=== PATIENT | female | born 1950 | race Caucasian/White ===

== ENCOUNTER 2024-02-11 14:56 | Day surgery (SDC) | payer MEDICARE ==
[2024-02-11] MEDS ORDERED: Decadron 4 MG INJ IV ONE (14:57)
[2024-02-11] MEDS ORDERED: Sodium Chloride 0.9(Preservative Free) 10 ML IJ ONE (14:57)
[2024-02-11] MEDS ORDERED: DIPRIVAN 200 MG/20 ML IV ONE (17:44)
[2024-02-11] MEDS ORDERED: ROBINUL ONE (17:49)
[2024-02-11] MEDS ORDERED: Lactated Ringers 1,000 ML IV ONE (18:17)
--- NOTE | 2024-02-11 20:37 | XRAY ---
Indication: Left L4-S1 transforaminal MARYAM. Intraoperative fluoroscopy provided for 30 seconds. 4 digital spot image submitted for interpretation demonstrates posterior needle tips projecting over expected left L4 and L5 nerve roots. Small amount of contrast injected for needle tip placement. Correlate with intraoperative findings/report.
--- NOTE | 2024-02-12 09:19 | XRAY ---
30 seconds of fluoroscopy was used in surgery for a left L4-S1 transforaminal MARYAM.
== END 2024-02-11 18:18 | disposition home or self-care (01) ==
LOC: SDC-PAIN 14:56
PROVIDERS: ATTEND Psychiatry & Neurology Pain Medicine
DX: M54.16 Radiculopathy, lumbar region (principal)
CPT/HCPCS: 64483; 64484; 72100; 77003; J1100; J2704; Q9966

== ENCOUNTER 2024-04-21 12:43 | Day surgery (SDC) | payer MEDICARE ==
[2024-04-21] MEDS ORDERED: Depo-Medrol 40 MG/ML IM ONE (12:44)
[2024-04-21] MEDS ORDERED: XYLOCAINE-MPF 1% 5ML SDV IJ ONE (12:44)
[2024-04-21] MEDS ORDERED: Sodium Chloride 0.9(Preservative Free) 10 ML IJ ONE (12:44)
[2024-04-21] MEDS ORDERED: Lactated Ringers 1,000 ML IV ONE (14:30)
[2024-04-21] MEDS ORDERED: DIPRIVAN 200 MG/20 ML IV ONE (14:49)
--- NOTE | 2024-04-21 16:31 | XRAY ---
Indication: Lumbar MARYAM. Intraoperative fluoroscopy provided for 17 seconds. 3 digital spot image submitted for interpretation demonstrates needle tip projecting posterior to L4-L5 interspace. Small amount of contrast injected for needle tip placement. Correlate with intraoperative findings/report.
--- NOTE | 2024-04-21 17:20 | XRAY ---
17 seconds of fluoroscopy was used in surgery for a lumbar MARYAM.
== END 2024-04-21 15:25 | disposition home or self-care (01) ==
LOC: SDC-PAIN 12:43
PROVIDERS: ATTEND Psychiatry & Neurology Pain Medicine
DX: M54.16 Radiculopathy, lumbar region (principal)
CPT/HCPCS: 62323; 72100; 77003; J1010; J2704; Q9966

== ENCOUNTER 2024-05-26 11:27 | Day surgery (SDC) | payer MEDICARE ==
[2024-05-26] MEDS ORDERED: Sodium Chloride 0.9(Preservative Free) 10 ML IJ ONE (11:28)
[2024-05-26] MEDS ORDERED: Depo-Medrol 40 MG/ML IM ONE (11:28)
[2024-05-26] MEDS ORDERED: DIPRIVAN 200 MG/20 ML IV ONE (14:37)
[2024-05-26] MEDS ORDERED: Lactated Ringers 1,000 ML IV ONE (14:38)
[2024-05-26] MEDS ORDERED: MORPHINE SULFATE 2 MG INJ ONE (15:02)
--- NOTE | 2024-05-26 16:26 | XRAY ---
Indication: Caudal MARYAM. Intraoperative fluoroscopy provided for 12 seconds. 2 digital spot images submitted for interpretation demonstrates caudal needle tip projecting mid sacrum. Small amount of contrast injected for needle tip placement. Correlate with intraoperative findings/report.
--- NOTE | 2024-05-26 16:51 | XRAY ---
12 seconds of fluoroscopy was used in surgery for a caudal MARYAM.
== END 2024-05-26 15:45 | disposition home or self-care (01) ==
LOC: SDC-PAIN 11:27
PROVIDERS: ATTEND Psychiatry & Neurology Pain Medicine
DX: M54.16 Radiculopathy, lumbar region (principal)
CPT/HCPCS: 62323; 72220; 77003; J1010; J2270; J2704; Q9966